=== PATIENT | male | born 1945 | race Caucasian/White ===

== ENCOUNTER → 2017-04-07 | Day surgery (SDC) | payer OTHER ==
[~2017-04-07] MED LIST: ALBUTEROL 3 ML DEYVIAL IH PRN; BUPIVACAINE 0.25% 30 ML SDV ONE; DEXAMETHASONE 4 MG/ML VIAL ONE; HYDROCODONE/APAP 5/325 TAB PO PRN; HYDROmorphONE/DILAUDID 1 MG/ML INJ IVP PRN; LIDOCAINE 1% 2 ML INJ ID PRN; LIDOCAINE 2% 5 ML SDV ONE; LR 1,000 ML IV ONE; LR 500 ML IV PRN; NALOXONE HCL 0.4 MG/ML INJ IVP PRN; ONDANSETRON 4 MG/2 ML VIAL IVP PRN; ONDANSETRON 4 MG/2 ML VIAL ONE; OXYMETAZOLINE 30 ML NASAL SPRAY ONE; PROPOFOL 200 MG/20 ML VIAL ONE; ROCURONIUM 50 MG/5 ML VIAL ONE; SUGAMMADEX SODIUM 200 MG/2 ML VIAL IVP ONE; fentaNYL 100 MCG/2 ML INJ IVP PRN; fentaNYL 100 MCG/2 ML INJ ONE
--- NOTE | 2017-04-07 08:58 | PDANEPAE ---
ANE History of Present Illness 71 year old male presents for excision of pallate mass. PMHx includes HTN, HLD , BPH. ANE Past Medical History - Cardiovascular History Hx Hypertension: Yes Hx Arrhythmias: No Hx Chest Pain: No Hx Coronary Artery / Peripheral Vascular Disease: No Hx CHF / Valvular Disease: No Hx Palpitations: No Cardiovascular History Comment: on chol Rx - Pulmonary History Hx COPD: No Hx Asthma/Reactive Airway Disease: No Hx Recent Upper Respiratory Infection: No Hx Oxygen in Use at Home: No Hx Sleep Apnea: No Sleep Apnea Screening Result - Last Documented: Positive Pulmonary History Comment: Smoked 60 years 1/2 ppd - quit early Feb. - Neurologic History Hx Cerebrovascular Accident: No Hx Seizures: No Hx Dementia: No Neurologic History Comment: vertigo - Endocrine History Hx Diabetes: No Hypothyroid: No Hyperthyroid: No Obesity: no - Renal History Hx Renal Disorders: Yes Renal History Comment: nocturia x2-3. on Rx to help urine flow. 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 bilat cataract extraction w/IOL ANE Review of Systems Review of systems is: negative Review of Systems: - Exercise capacity Exercise capacity: >=4 METS METS (RN): 4 METS ANE Patient History - Allergies Allergies/Adverse Reactions: No Known Allergies Allergy (Unverified 04/05/17 12:41) - Home Medications Home medications: home medication list seen and reviewed Home Medications: Amlodipine Besylate 04/05/17 [Last Taken Unknown] Aspirin 81mg (*) 04/05/17 [Last Taken 04/04/17 11:00] Atorvastatin Calcium 04/05/17 [Last Taken Unknown] Fish Oil 1000 mg (*) 04/05/17 [Last Taken 04/04/17 11:00] Tamsulosin HCl 04/05/17 [Last Taken Unknown] - NPO status NPO Status: no food or drink >8 hours - Anes Hx Anes Hx: no prior problems - Smoking Hx Smoking Status: Former smoker - Alcohol Use Alcohol Use: Occasionally - Family Anes Hx Family Anes Hx: neg - N/A ANE Labs/Vital Signs - Vital Signs Vital Signs: reviewed preoperatively; see RN documention for details Height: 177.8 cm Weight: 74.843 kg ANE Physical Exam - Airway Neck exam: FROM Mallampati Score: Class 2 Mouth exam: normal dental/mouth exam - Pulmonary Pulmonary: no respiratory distress - Cardiovascular Cardiovascular: regular rate and rhythym - ASA Status ASA Status: II ANE Anesthesia Plan Anesthesia Plan: general endotracheal anesthesia Total IV Anesthesia: No
--- NOTE | 2017-04-07 10:01 | PDHPUP ---
History & Physical Update H&P update statement: This history and physical update is based on an assessment of the patient which was completed after admission or registration (within 24 hours), but prior to the surgery/procedure.
--- NOTE | 2017-04-07 11:32 | POSTOPPROG ---
Post Op Note Date of Operation: 04/07/17 Surgeon: Bindu Carcamo Medical Housekeeper: none Anesthesia: GET(General Endotracheal) Pre-op Diagnosis: oral cancer Post-op Diagnosis: same Procedure: wide resection of oral cancer Inf/Abcess present in the surg proc area at time of surgery?: No Depth: Deep Incisional (Fascial) EBL: 50-100 Total fluids administered: 750 Specimen(s): uvula/ soft palate carcinoma
[2017-04-07 12:05] VITALS: PULSE 67; RESP 14; TEMP 96.4
[2017-04-07 13:15] VITALS: BP 131/76; O2SAT 94
--- NOTE | 2017-04-07 14:37 | GOP ---
[f rep st] OPERATIVE REPORT DATE OF OPERATION: 04/07/2017 SURGEON: Leoncio Carcamo MD ANESTHESIA: General endotracheal. PREOPERATIVE DIAGNOSIS: POSTOPERATIVE DIAGNOSIS: PROCEDURE PERFORMED: Procedure planned and performed was direct laryngoscopy with wide excision of u vular and soft palatal carcinoma with closure. 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 ESTIMATED BLOOD LOSS: 50 mL. DESCRIPTION OF PROCEDURE: Patient was placed on the operating table in the supine position. After i nduction of adequate general endotracheal anesthesia, sterile draping was performed. Sterile eye pad s and head drape were placed. The Dedo laryngoscope was advanced into the oral cavity and then into the oropharynx. A thorough visualization of the larynx and hypopharynx was obtained. No abnormality was noted in this region. The laryngoscope was further withdrawn. The right tonsillar fossa was ab normal with the remainder of the oral cavity and oropharynx within normal limits. Palpation of the n asopharynx and base of tongue was performed and all was found to be within normal limits. At this point, attention was directed to the resection of the palatal lesion. The Yen-Terrence mouth gag was inserted over the previously placed endotracheal tube with care given to maintain the tube's correct depth. The Yen-Terrence mouth gag was then opened, revealing the irregular area of mucosa in the right superior tonsillar fossa as well as the medial aspect of the uvula. The lesion was thoroug hly examined then widely excised using the needle-tip Bovie electrocautery. Hemostasis was obtained following removal of the lesion utilizing the Bovie electrocautery. The lateral and superior margins were then taken from the patient and sent for frozen section evaluation. No residual squamous cell carcinoma was noted. At this point, the anterior and posterior tonsillar pillar mucosa was approximated on the right utili zing 2 and 3-0 Vicryl sutures. The anterior and posterior soft palatal mucosa were approximated util izing interrupted 2-0 Vicryl sutures. The right tonsillar fossa was left open. Once surgical margins had been returned from frozen section analysis and found to be negative, infiltration of the wound w as performed utilizing 0.25% Marcaine solution. Care was given to the avoidance of intravascular inj ection. At this point, the procedure was terminated. The patient was then awakened, transferred to the posta nesthesia recovery in stable condition. 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 FLUID REPLACEMENT: 750 mL. COMPLICATIONS: None. /[id number]/MODL
--- NOTE | 2017-04-07 14:54 | POSTANESTH ---
Post Anesthetic Evaluation Cardiovascular Status: Normal, Stable, Similar to Pre-Op Cond Respiratory Status: Normal, Stable, Similar to Pre-op Cond. Level of Consciousness/Mental Status: Can Participate in Eval, Alert and Oriented Pain Control: Adequate, Prn Tx Ordered Nausea/Vomiting Control: Adequate, Prn Tx Ordered Complications Possibly Related to Anesthesia: None Noted
== END | disposition home or self-care (01) ==
LOC: FSGY 08:13
PROVIDERS: ATTEND Otolaryngology
PROC: 0CJS8ZZ Inspection of Larynx, Via Natural or Artificial Opening Endoscopic (ICD-10-PCS; principal; 2017-04-07 10:15)
PROC: 0CBNXZZ Excision of Uvula, External Approach (ICD-10-PCS; principal; 2017-04-07 10:15)
PROC: 0CB3XZZ Excision of Soft Palate, External Approach (ICD-10-PCS; principal; 2017-04-07 10:15)
DX: C05.1 Malignant neoplasm of soft palate (principal); Z87.891 Personal history of nicotine dependence; R42 Dizziness and giddiness; I10 Essential (primary) hypertension; G47.33 Obstructive sleep apnea (adult) (pediatric); K21.9 Gastro-esophageal reflux disease without esophagitis; E78.00 Pure hypercholesterolemia, unspecified; H91.90 Unspecified hearing loss, unspecified ear
CPT/HCPCS: J1100; J2405; J2704; J3010